=== PATIENT | male | born 1945 | race Caucasian/White ===

== ENCOUNTER 2018-03-18 09:59 | Outpatient (RCR) | payer MEDICARE, SELFPAY | END 2018-08-08 14:08 | LOC: SP 09:59 | PROVIDERS: Family Provider Family Medicine; PCP Family Medicine; Visit Provider Family Medicine | DX: R13.10 Dysphagia, unspecified (principal) | CPT/HCPCS: 92610 ==

== ENCOUNTER → 2018-05-08 12:25 | Outpatient (CLI) | payer MEDICARE, SELFPAY ==
--- NOTE | 2018-05-08 | DI.RAD.S_ITS ---
PROCEDURE: FL BARIUM SWALLOW W SPEECH INDICATIONS: DYSPHAGIA TECHNIQUE: Examination was conducted in conjunction with speech pathology per standard protocol. In the lateral projection, filming was performed of the patient swallowing. AP projection filming may also be performed with patient swallowing. COMPARISON: [facility], BARIUM SWALLOW, 02/07/2008, 11:15. [facility], BARIUM SWALLOW, 12/09/2007, 9:26. FINDINGS: Function: The oral preparatory phase appears normal, with proper containment. The subsequent oral propulsive phase, pharyngeal phase, and esophageal phase of swallowing also appear normal with all proffered substances. No laryngotracheal penetration or aspiration. No pathologic vallecular pooling. Morphology: No cricopharyngeal bar is identified. No cervical esophageal webs. No Zenker's diverticulum. No strictures. Quality of visualization of the distal esophagus is quite limited, and the margins of the esophagus in that area appears somewhat irregular. IMPRESSION: No aspiration found, no penetration identified. Irregular margins of the distal esophagus are noted on frontal projection and followup by endoscopy or upper GI examination may be the appropriate next step. The patient reported prior upper GI examinations and distant past esophageal endoscopy. No recent similar procedures have been performed. Please refer to the dedicated speech therapy report from this examination which will be independently generated. Dictated by: Aurelio Simeon M.D. on 05/08/2018 at 15:12 Approved by: Aurelio Simeon M.D. on 05/08/2018 at 15:27
== END ==
PROVIDERS: PCP Family Medicine; Visit Provider Family Medicine
DX: R13.10 Dysphagia, unspecified (principal)
CPT/HCPCS: 74230; 92611

== ENCOUNTER 2018-09-25 10:35 | Day surgery (SDC) | payer MEDICARE, SELFPAY ==
[2018-09-25 10:49] VITALS: BP 168/87; PULSE 59; RESP 15; TEMP 36.1; O2SAT 98; BMI 32.0
[2018-09-25] MEDS: SODIUM CHLORIDE 0.9% 1,000 ML 42 ML IV (11:05)
--- NOTE | 2018-09-25 12:00 | PM.HP.1 ---
History of Present Illness Date Patient Seen: 09/25/18 Time Patient Seen: 12:00 Chief complaint: [id number] Narrative: Worsening dysphagia with GE reflux Patient History Medical History (Updated 09/24/18 @ 17:06 by Keira Villa RN) Borderline diabetes (Acute) Diverticulosis (Acute) Fibromyalgia (Acute) GE reflux (Acute) HTN (hypertension) (Acute) Hyperlipidemia (Acute) Hypothyroid (Acute) Sjogren's disease (Acute) Surgical History (Updated 09/24/18 @ 17:07 by Keira Villa RN) S/P cholecystectomy (Acute) Social History household members: spouse Family & Social History Social History: household members spouse Meds Home Medications Medication Instructions Recorded Confirmed Type Aspir-81 09/24/18 History Onglyza 09/24/18 History hydrochlorothiazide 09/24/18 History levothyroxine 09/24/18 History lisinopril 09/24/18 History metoprolol succinate 09/24/18 History omeprazole 09/24/18 History Allergies Allergy/AdvReac Type Severity Reaction Status Date / Time INGREDIENT: NDA - NO KNOWN Allergy Unknown Uncoded 08/22/17 12:34 DRUG ALLERGIES Lidocaine AdvReac Unknown Uncoded 09/25/18 10:45 Morphine AdvReac Unknown Uncoded 08/22/17 12:34 Exam Vital Signs (past 8 hours): - 09/25/18 10:49 Temperature 96.9 F L Pulse Rate 59 L Respiratory Rate 15 Blood Pressure 168/87 H Pulse Oximetry 98 Oxygen Delivery Method Room Air Narrative Exam Narrative: Oropharynx free of lesions Chest clear to auscultation percussion Cardiac exam reveals no S3 or murmur Assessment & Plan Assessment & Plan narrative: Worsening dysphagia on the background of GE reflux Plan is to perform upper endoscopy and dilation if necessary. Risks, benefits, alternatives have been explained.
--- NOTE | 2018-09-25 12:04 | P.OP.ENDO_ITS ---
Operative Date/Time/Diagnoses Date of procedure: 09/25/18 Time of procedure: 12:03 Pre-op diagnosis: See indication and findings Procedure & Clinicians Study performed: EGD Same procedure as scheduled: Yes Indications: Worsening dysphagia Surgeon: Ebony Fagan Procedure Notes Procedure in detail: After informed consent was obtained the patient was placed in left lateral decubitus position. The video upper scope was placed into the oropharynx with the patient's help swelled the esophagus. The esophagus stomach and duodenum were carefully examined. On withdrawal retroflexed view the GE junction was performed. Scope was removed. The patient tolerated the procedure well. Blood loss none Complications none Medications Total sedation time 11 minutes Versed 5 mg fentanyl 100 micro g IV titration Findings 1. Tortuous somewhat spastic esophagus with lots of bubbly secretions present. Distal esophagus/GE junction was somewhat tight around the scope but did not clearly have a stenotic lesion. On withdrawal this was dilated to 54 [place] Savary. There was no resistance. 2. 3 cm hiatal hernia from 37-40 cm 3. Scanty erythema in the antrum 4. Normal duodenal bulb and sweep The patient could have underlying achalasia or at least EGJ obstruction. I wo uld just like to see how he does with this routine Savary dilation and if it improves if prolonged period of time then will considered adequate. If it does not then I would suggest esophageal manometry for further diagnosis. All
[2018-09-25] MEDS: MIDAZOLAM 5 MG/5 ML VIAL IV (12:58)
[2018-09-25] MEDS: fentaNYL 250 MCG/5 ML INJ IV (12:58)
[2018-09-25 13:08] VITALS: BP 109/62; PULSE 63; RESP 13; TEMP 36.4; O2SAT 97
[2018-09-25 13:15] VITALS: BP 121/63; PULSE 63; RESP 13; O2SAT 96
[2018-09-25 13:20] VITALS: BP 109/61; PULSE 60; RESP 16; TEMP 36.3; O2SAT 95
[2018-09-25 13:45] VITALS: BP 130/72; PULSE 61; RESP 16; TEMP 36.3; O2SAT 94
[2018-09-25 14:06] VITALS: BP 125/72; PULSE 60; RESP 15; TEMP 36.3; O2SAT 97
== END 2018-09-25 14:13 ==
LOC: ENDO 10:36
PROVIDERS: PCP Family Medicine; Visit Provider Internal Medicine Gastroenterology
PROC: 0DJ08ZZ Inspection of Upper Intestinal Tract, Via Natural or Artificial Opening Endoscopic (ICD-10-PCS; CPT 43235; principal; 2018-09-25 12:30)
DX: R13.10 Dysphagia, unspecified (principal); K44.9 Diaphragmatic hernia without obstruction or gangrene; K21.9 Gastro-esophageal reflux disease without esophagitis; I10 Essential (primary) hypertension; E78.5 Hyperlipidemia, unspecified; E03.9 Hypothyroidism, unspecified; M35.00 Sjogren syndrome, unspecified
CPT/HCPCS: 43248; J2250; J3010

== ENCOUNTER → 2019-07-21 11:55 | Outpatient (CLI) | payer MEDICARE, SELFPAY ==
--- NOTE | 2019-07-21 | DI.RAD.S_ITS ---
PROCEDURE: XR HIP W PEL IF DONE RT 2V INDICATIONS: RIGHT HIP PAIN TECHNIQUE: AP pelvis with lateral view(s) of the right hip(s). COMPARISON: None. FINDINGS: Bones: No fractures or dislocations. Sacroiliac joints grossly unremarkable. Lower lumbar spondylosis. Mild bilateral hip degeneration. Pelvic ring appears intact. No suspicious bony lesions. Soft tissues: The visualized bowel gas pattern is normal. No suspicious soft tissue calcifications. IMPRESSION: Mild bilateral hip joint degeneration. Lower lumbar spondylosis Dictated by: Steve Rutherford M.D. on 07/21/2019 at 16:18 Approved by: Steve Rutherford M.D. on 07/21/2019 at 16:35
--- NOTE | 2019-07-21 | DI.RAD.S_ITS ---
PROCEDURE: XR LUMBAR SPINE 2-3V INDICATIONS: RIGHT HIP PAIN TECHNIQUE: 3 views of the lumbar spine were acquired. COMPARISON: None. FINDINGS: Bones: No fracture or focal osseous destruction. Grade 1 anterolisthesis of L4 and L5. Multilevel degenerative endplate sclerosis and spurring. Diffuse facet arthropathy. Severe narrowing of the L5-S1 disc space. Diffuse mild lumbar disc space narrowing Soft tissues: Overlying bowel gas pattern is normal. No suspicious soft tissue calcifications. IMPRESSION: Diffuse lumbar spondylosis and facet arthropathy Grade 1 anterolisthesis of L4-L5 Dictated by: Steve Rutherford M.D. on 07/21/2019 at 16:15 Approved by: Steve Rutherford M.D. on 07/21/2019 at 16:17
== END ==
PROVIDERS: PCP Family Medicine; Referring Provider Family Medicine; Visit Provider Family Medicine
DX: M25.551 Pain in right hip (principal); M16.0 Bilateral primary osteoarthritis of hip; M43.16 Spondylolisthesis, lumbar region; M47.816 Spondylosis without myelopathy or radiculopathy, lumbar region; M48.07 Spinal stenosis, lumbosacral region; M54.9 Dorsalgia, unspecified; R29.898 Other symptoms and signs involving the musculoskeletal system
CPT/HCPCS: 72100; 73502

== ENCOUNTER → 2020-04-12 10:16 | Outpatient (CLI) | payer MEDICARE, SELFPAY ==
[2020-04-12 12:22] LABS: COVID19 -Nasal RAPID Negative (Negative)
== END ==
PROVIDERS: PCP Family Medicine; Visit Provider Physician Assistant
DX: Z11.59 Encounter for screening for other viral diseases (principal)
CPT/HCPCS: 87635

== ENCOUNTER 2020-04-14 07:31 | Day surgery (SDC) | payer MEDICARE, SELFPAY ==
--- NOTE | 2020-04-14 | PATH_ITS ---
[facility] Accession Number: [id number] . 01 Material submitted: . body - NO SITE DESIGNATED . 01 Clinical history: . SDC RULE OUT EOE . 02 Diagnosis: Esophagus, Biopsy: Squamous epithelium with no diagnostic abnormality. Intraepithelial eosinophils are not increased. Negative for dysplasia and malignancy. V 04/16/2020 1145 Local . 02 Electronically signed: . Milo Tinoco MD, PhD, Pathologist NPI- [id number] . 01 Gross description: . NO SITE DESIGNATED: Received in formalin are 3 fragment(s) of rm, soft tissue measuring 0.3 x 0.3 x 0.1 cm to 0.3 x 0.1 x 0.1 cm submitted entirely in 1 cassette(s) /QBJ 04/15/2020 0634 Local . 02 Pathologist provided ICD-10: R13.10 . 02 CPT . 684424 Performed at: 01 [facility] [address] [facility], [place], [place] [id number] MD Rai Noel MD Phone: [phone] Performed at: 02 [facility] [address] [place], [place] [id number] MD Martha De MD Phone: [phone]
[2020-04-14 08:24] VITALS: BP 164/83; PULSE 59; RESP 16; TEMP 36.2; O2SAT 98; BMI 32.5
--- NOTE | 2020-04-14 08:32 | PM.HP.1 ---
History of Present Illness History of Present Illness Date Patient Seen: 04/14/20 Time Patient Seen: 08:32 Chief complaint: SDC Narrative: Dysphagia Patient History Medical History (Updated 09/24/18 @ 17:06 by Keira Villa RN) Borderline diabetes Diverticulosis Fibromyalgia GE reflux HTN (hypertension) Hyperlipidemia Hypothyroid Sjogren's disease Surgical History (Updated 09/24/18 @ 17:07 by Keira Villa RN) S/P cholecystectomy Family & Social History Social History: household members spouse Meds Home Medications and Allergies Home Medications Medication Instructions Recorded Confirmed Type Aspir-81 81 mg PO DAILY 09/24/18 04/14/20 History Onglyza 5 mg PO BEDTIME 09/24/18 04/14/20 History levothyroxine 75 mcg PO DAILY 09/24/18 04/14/20 History metoprolol succinate 75 mg PO DAILY 09/24/18 04/14/20 History omeprazole 20 mg PO BID 09/24/18 04/14/20 History hydroxychloroquine 200 mg PO BID 04/14/20 04/14/20 History Allergies Allergy/AdvReac Type Severity Reaction Status Date / Time lidocaine AdvReac Unknown Nearly Verified 04/14/20 08:15 passed out morphine AdvReac Unknown Difficulty Verified 04/14/20 08:15 Breathing Exam Narrative Exam Narrative: Oropharynx free of lesions Chest clear to auscultation percussion Cardiac exam reveals no S3 or murmur Assessment & Plan Assessment & Plan narrative: Dysphagia in the upper substernal region. Rule out mechanical lesion such as web or stricture. Rule out eosinophilic esophagitis. Risks, benefits, alternatives have been explained.
--- NOTE | 2020-04-14 08:33 | PM.OP.ENDO ---
Operative Date/Time/Diagnoses Date of procedure: 04/14/20 Pre-op diagnosis: See indication and findings Procedure & Clinicians Study performed: EGD Same procedure as scheduled: Yes Indications: Dysphagia Surgeon: Ebony Fagan Procedure Notes Procedure in detail: After informed consent was obtained the patient was placed in left lateral decubitus position. The video upper scope was placed into the oropharynx and with the patient's help swallowed into the esophagus. The esophagus stomach and duodenum were carefully examined. On withdrawal, retroflexed view of the GE junction was performed. The scope was removed. The patient tolerated procedure well. Blood loss none Complications none Sedation Total sedation time 10 minutes Versed 3 mg fentanyl 100 micro g IV titration. Findings 1. Impingement on the most proximal esophagus by pulsating extra luminal lesion. This probably represents dysphagia lusoria 2. Somewhat disordered peristalsis in the distal esophagus. Biopsies taken to rule out eosinophilic esophagitis 3. Tight somewhat difficult to get through GE junction which subsequently opened up a bit. Rule out achalasia. GE junction at 36 cm 4. 6 cm hiatal hernia 5. Mild patchy erythema in the distal stomach not biopsy 6. Normal duodenal bulb and sweep I think 1st Mr. Reo needs to have an barium swallow performed this will be arranged for him at [facility]. Pending that result we will decide on whether or not he needs esophageal manometry.
[2020-04-14] MEDS: SODIUM CHLORIDE 0.9% 1,000 ML 100 ML IV (08:35)
[2020-04-14] MEDS: MIDAZOLAM 5 MG/5 ML VIAL IV (08:58)
[2020-04-14] MEDS: fentaNYL 250 MCG/5 ML INJ IV (08:58)
[2020-04-14 09:03] VITALS: BP 136/81; PULSE 63; RESP 16; O2SAT 95
[2020-04-14 09:07] VITALS: BP 142/76; PULSE 68; RESP 12; TEMP 36.6; O2SAT 95
[2020-04-14 09:13] VITALS: BP 133/79; PULSE 70; RESP 15; TEMP 36.6; O2SAT 96
[2020-04-14 09:20] VITALS: BP 140/80; PULSE 65; RESP 16; TEMP 36.6; O2SAT 99
[2020-04-14 10:30] VITALS: BP 136/79; PULSE 69; RESP 16; TEMP 36.6; O2SAT 99
--- NOTE | 2020-04-14 12:10 | SUR.PHASEII ---
Late entry: Dr. Fagan spoke with pt about results of procedure and what tests were possibly needed in the future.
--- NOTE | 2020-04-14 12:14 | SUR.PHASEII ---
Late entry: stable phase 2, assisted to dress when ready to go, no nausea belly soft.
== END 2020-04-14 10:40 | disposition home or self-care (01) ==
PROVIDERS: PCP Family Medicine; Referring Provider Internal Medicine Gastroenterology; Visit Provider Internal Medicine Gastroenterology
PROC: 0DJ08ZZ Inspection of Upper Intestinal Tract, Via Natural or Artificial Opening Endoscopic (ICD-10-PCS; CPT 43235; principal; 2020-04-14 08:30)
DX: R13.10 Dysphagia, unspecified (principal); K44.9 Diaphragmatic hernia without obstruction or gangrene; M79.7 Fibromyalgia; K21.9 Gastro-esophageal reflux disease without esophagitis; I10 Essential (primary) hypertension; E78.5 Hyperlipidemia, unspecified; E03.9 Hypothyroidism, unspecified; M35.00 Sjogren syndrome, unspecified
CPT/HCPCS: 43239; J2250; J3010

== ENCOUNTER → 2020-04-16 11:03 | Outpatient (CLI) | payer MEDICARE, SELFPAY ==
--- NOTE | 2020-04-16 11:09 | DI.MRI.S_ITS ---
PROCEDURE: MR HEAD/BRAIN WO/W CON INDICATIONS: Headache, unspecified TECHNIQUE: Noncontrast axial T1 spin echo, axial T2 fast spin echo, sagittal and axial FLAIR, coronal T2 fast spin echo, axial gradient echo, axial diffusion and ADC through the brain. After the administration of contrast, axial and coronal T1 spin echo with fat saturation through the brain. COMPARISON: None. FINDINGS: Image quality: Excellent. CSF spaces: Basal cisterns are patent. No extra-axial fluid collections. Ventricles are normal in size and shape. Brain: No midline shift. No intracranial bleeds or masses. No abnormal intracranial enhancement. There is cerebral volume loss for age. There is periventricular white matter chronic small vessel ischemic change. The brainstem appears normal. Diffusion-weighted images demonstrate no acute ischemic insults. No chronic ischemic insults. Normal intravascular flow voids are present. Skull and face: Calvarial marrow is normal in signal. Orbits appear normal. Sinuses: Sinuses and mastoids appear clear. IMPRESSION: No evidence of acute ischemia. No acute intracranial signal abnormality or enhancement. Diffuse small white matter changes, probably represent chronic microvascular ischemic disease, versus statistically less likely demyelination or other infectious, inflammatory, neurodegenerative etiology, technically nonspecific. Dictated by: Steve Rutherford M.D. on 04/16/2020 at 12:34 Approved by: Steve Rutherford M.D. on 04/16/2020 at 12:39
--- NOTE | 2020-04-16 11:10 | DI.MRI.S_ITS ---
PROCEDURE: MR ANGIO HEAD WO CON INDICATIONS: Headache, unspecified TECHNIQUE: Noncontrast axial 3-D [id number] MR angiogram, with 3-dimensional maximum intensity projection (MIP) reformats of the internal carotid arteries and posterior circulation then performed. COMPARISON: None. FINDINGS: Image quality: Excellent. Anterior circulation: Intracranial internal carotid arteries demonstrate normal size and intraluminal flow signal. The flow within the paired anterior cerebral arteries is normal and symmetric. The flow within the middle cerebral arteries is normal and symmetric. The anterior communicating artery is seen. No stenoses, occlusions, or aneurysms. Posterior circulation: Visualized portions of the vertebral arteries demonstrate normal caliber, and join to form a normal appearing basilar artery. The flow within the posterior cerebral arteries is normal and symmetric. No stenoses, occlusions, or aneurysms. IMPRESSION: Negative cerebral MR angiography. Dictated by: Annalisa Norman M.D. on 04/16/2020 at 12:41 Approved by: Annalisa Norman M.D. on 04/16/2020 at 12:42
--- NOTE | 2020-04-16 11:11 | DI.RAD.S_ITS ---
PROCEDURE: XR WRIST LT MIN 3V INDICATIONS: PAIN IN WRIST LEFT TECHNIQUE: 4 views of the wrist were acquired. COMPARISON: None. FINDINGS: Bones: No fractures or dislocations. No suspicious bony lesions. Severe 1st CMC and triscaphe joint degeneration. Soft tissues: No suspicious soft tissue calcifications. IMPRESSION: Left wrist joint degeneration as above. If the patient's pain or other symptoms persist, consider further evaluation with MRI Dictated by: Steve Rutherford M.D. on 04/16/2020 at 13:45 Approved by: Steve Rutehrford M.D. on 04/16/2020 at 13:46
== END ==
PROVIDERS: PCP Family Medicine; Referring Provider Family Medicine; Visit Provider Family Medicine
DX: R51.9 Headache, unspecified (principal); M25.532 Pain in left wrist; M18.12 Unilateral primary osteoarthritis of first carpometacarpal joint, left hand; M19.032 Primary osteoarthritis, left wrist
CPT/HCPCS: 70544; 70553; 73110; A9579

== ENCOUNTER → 2020-04-26 11:01 | Outpatient (CLI) | payer MEDICARE, SELFPAY ==
--- NOTE | 2020-04-26 | DI.RAD.S_ITS ---
PROCEDURE: FL BARIUM SWALLOW INDICATIONS: Dysphagia, unspecified COMPARISON: [facility], , [place] BARIUM SWALLOW W SPEECH, 05/08/2018, 13:19. FINDINGS: Function: There is markedly decreased esophageal peristalsis. No elicited gastroesophageal reflux. There is delayed transit of a calibrated barium tablet through the esophagus into the stomach. Morphology: There is marked dilated appearance of the esophagus diffusely. Beak like narrowing appearance of the distal esophagus. There is a small hiatal hernia. IMPRESSION: Severe esophageal dysmotility and dilated appearance of the esophagus . Beak-like narrowed appearance of the distal esophagus suggestive of achalasia. Of note, there was no passage of a barium tablet through this region during the examination. Recommend clinical correlation and if necessary, further evaluation could be performed with upper endoscopy to exclude malignant etiologies. Small hiatal hernia Dictated by: Steve Rutherford M.D. on 04/26/2020 at 16:16 Approved by: Steve Rutherford M.D. on 04/26/2020 at 16:26
== END ==
PROVIDERS: PCP Family Medicine; Referring Provider Internal Medicine Gastroenterology; Visit Provider Internal Medicine Gastroenterology
DX: R13.10 Dysphagia, unspecified (principal); K22.4 Dyskinesia of esophagus; K44.9 Diaphragmatic hernia without obstruction or gangrene
CPT/HCPCS: 74220

== ENCOUNTER → 2022-04-20 09:49 | Outpatient (CLI) | payer MEDICARE, SELFPAY ==
--- NOTE | 2022-04-20 | DI.RAD.S_ITS ---
PROCEDURE: XR KNEE RT 3V INDICATIONS: Pain in unspecified knee TECHNIQUE: 3 views of the knee were acquired. COMPARISON: [facility], CR, XR KNEE LT 3V, 04/20/2022, 10:07. FINDINGS: Bones: No fractures or dislocations. No suspicious bony lesions. There is mild tricompartmental osteoarthritic degenerative change. Soft tissues: No joint effusion. No suspicious soft tissue calcifications. IMPRESSION: Mild tricompartmental osteoarthritic degenerative change. Dictated by: Gavin Edge M.D. on 04/20/2022 at 10:41 Approved by: Gavin Edge M.D. on 04/20/2022 at 10:43
--- NOTE | 2022-04-20 | DI.RAD.S_ITS ---
PROCEDURE: XR KNEE LT 3V INDICATIONS: Pain in unspecified knee TECHNIQUE: 3 views of the knee were acquired. COMPARISON: None. FINDINGS: Bones: No fractures or dislocations. No suspicious bony lesions. There is mild tricompartmental osteoarthritic type degenerative change present. Soft tissues: No joint effusion. No suspicious soft tissue calcifications. Atherosclerotic vascular calcifications are noted. IMPRESSION: 1. No evidence for acute osseous abnormality involving the patient's left knee. 2. Mild tricompartmental osteoarthritic degenerative change. 3. Atherosclerotic vascular calcifications. Dictated by: Gavin Edge M.D. on 04/20/2022 at 10:43 Approved by: Gavin Edge M.D. on 04/20/2022 at 10:45
--- NOTE | 2022-04-20 | DI.RAD.S_ITS ---
PROCEDURE: XR LUMBAR SPINE 2-3V INDICATIONS: back pain TECHNIQUE: 3 views of the lumbar spine were acquired. COMPARISON: [facility], CR, XR LUMBAR SPINE 2-3V, 07/21/2019, 11:58. FINDINGS: Bones: 5 oxj-cor-qykzpoc vertebrae are present. There is normal bony alignment. No vertebral body compression fractures. No suspicious bony lesions. There is npmj-lq-billegmw degenerative disc disease noted at all levels throughout the patient's lumbar spine. Soft tissues: Overlying bowel gas pattern is normal. No suspicious soft tissue calcifications. IMPRESSION: 1. No evidence for acute osseous abnormality involving the lumbar spine. 2. Mild to moderate diffuse degenerative disc disease noted at all levels. 3. Atherosclerotic vascular calcifications. Dictated by: Gavin Edge M.D. on 04/20/2022 at 10:45 Approved by: Gavin Edge M.D. on 04/20/2022 at 10:47
== END ==
PROVIDERS: PCP Family Medicine; Referring Provider Family Medicine; Visit Provider Family Medicine
DX: M47.816 Spondylosis without myelopathy or radiculopathy, lumbar region (principal); M25.569 Pain in unspecified knee
CPT/HCPCS: 72100; 73562

== ENCOUNTER → 2022-05-24 12:38 | Outpatient (CLI) | payer MEDICARE, SELFPAY ==
--- NOTE | 2022-05-24 12:41 | DI.RAD.S_ITS ---
PROCEDURE: XR CHEST 2V INDICATIONS: CHEST/CERVICAL SPINE TECHNIQUE: 2 views of the chest were acquired. COMPARISON: [facility], , CHEST 2 VIEW, 11/20/2013, 16:49. FINDINGS: Surgical changes and devices: None. Lungs and pleura: Lungs are clear. No pleural effusions or pneumothorax. Mediastinum: Mediastinal contours are normal. Heart size is normal. Moderate hiatal Bones and chest wall: No suspicious bony abnormalities. Soft tissues appear unremarkable. IMPRESSION: No acute cardiopulmonary findings Moderate hiatal hernia Approved by: Yo Sandhu M.D. on 05/24/2022 at 18:13
--- NOTE | 2022-05-24 12:42 | DI.RAD.S_ITS ---
PROCEDURE: XR CERVICAL SPINE 2V OR 3V INDICATIONS: CHEST/CERVICAL SPINE TECHNIQUE: 3 view(s) of the cervical spine were acquired. COMPARISON: None. FINDINGS: Bones: No fractures or dislocations to the T1 level. The lateral masses of C1 appear intact on the odontoid view. No suspicious bony lesions. C6-7 disc space narrowing and small anterior osteophyte Soft tissues: No prevertebral soft tissue swelling. IMPRESSION: Mild degenerative disc disease, C6-7 Approved by: Yo Sandhu M.D. on 05/24/2022 at 18:15
== END ==
PROVIDERS: PCP Family Medicine; Referring Provider Family Medicine; Visit Provider Family Medicine
DX: M50.323 Other cervical disc degeneration at C6-C7 level (principal); I25.10 Atherosclerotic heart disease of native coronary artery without angina pectoris; K44.9 Diaphragmatic hernia without obstruction or gangrene
CPT/HCPCS: 71046; 72040

== ENCOUNTER → 2022-07-18 14:42 | Outpatient (CLI) | payer MEDICARE, SELFPAY ==
--- NOTE | 2022-07-18 | DI.US.S_ITS ---
PROCEDURE: US CAROTID DOPPLER BI INDICATIONS: CERVICALGIA TECHNIQUE: Color and pulse Doppler interrogation was performed of both carotid systems, with image documentation and velocity measurements. COMPARISON: None. FINDINGS: Stenosis calculations are based on SRU (Society of Radiologists in Ultrasound) criteria. Right side: Brachial blood pressure: 145/68 mm Hg. Common carotid artery peak systolic velocity: 100 cm/sec. Internal carotid artery peak systolic velocity: 59 cm/sec. Internal carotid artery end diastolic velocity: 14 cm/sec. External carotid artery peak systolic velocity: 93 cm/sec. ICA/CCA peak systolic ratio: 0.6 . Gates scale imaging description: Mild plaque at the bifurcation Percent internal carotid artery stenosis: Less than 50 . Vertebral artery: Flow direction is antegrade. Left side: Brachial blood pressure: 129/65 mm Hg. Common carotid artery peak systolic velocity: 124 cm/sec. Internal carotid artery peak systolic velocity: 95 cm/sec. Internal carotid artery end diastolic velocity: 24 cm/sec. External carotid artery peak systolic velocity: 110 cm/sec. ICA/CCA peak systolic ratio: 0.8 . Gates scale imaging description: Mild plaque at the bifurcation Percent internal carotid artery stenosis: Less than 50% . Vertebral artery: Flow direction is antegrade. IMPRESSION: Less than 50% stenosis of the internal carotid arteries bilaterally. Dictated by: Anjana Geiger M.D. on 07/19/2022 at 12:48 Approved by: Anjana Geiger M.D. on 07/19/2022 at 12:49
== END ==
PROVIDERS: PCP Family Medicine; Referring Provider Family Medicine; Visit Provider Family Medicine
DX: M54.2 Cervicalgia (principal); I65.23 Occlusion and stenosis of bilateral carotid arteries
CPT/HCPCS: 93880

== ENCOUNTER → 2022-11-09 14:31 | Outpatient (CLI) | payer MEDICARE, SELFPAY ==
[2022-11-09 14:57] LABS: Hematocrit 43.8 % (41-53); Hemoglobin 15.6 g/dL (13.5-17.5); Mean Corpuscular HGB Conc 35.7 % (30-36); Mean Corpuscular Hemoglobin 32.5 PG (26-34); Mean Corpuscular Volume 90.9 fL (80-100); Platelet Count 186 X10^3/uL (150-400); Red Blood Cell Count 4.82 X10^6/uL (4.5-5.9); Red Cell Distribution Width 13.8 % (11.6-14.8); White Blood Cell Count 7.2 X10^3/uL (4.5-11.0)
[2022-11-09 15:15] LABS: Alanine Aminotransferase 20 IU/L (<50); Albumin 4.3 g/dL (3.5-5.0); Albumin Globulin Ratio 1.5 (1.0-2.8); Alkaline Phosphatase 89 U/L (38-126); Aspartate Aminotransferase 37 IU/L (17-59); BUN Creatinine Ratio 14.4 (6-22); Bilirubin Total 0.8 mg/dL (0.2-1.3); Blood Urea Nitrogen 14 mg/dL (9-20); Carbon Dioxide 29 mmol/L (22-32); Chloride 101 mmol/L (98-107); Cholesterol 168 mg/dL (140-199); Estimated Glomerular Filt Rate > 60 mL/min (>60); Globulin 2.9 g/dL (1.7-4.1); Glucose 132 mg/dL (80-110); HDL Cholesterol 37 mg/dL (40-60); HEMOLYSIS 20 (0-50); LDL Cholesterol Calculated 91 mg/dL (<100); Potassium 4.3 mmol/L (3.4-5.1); Sodium 137 mmol/L (137-145); Total Protein 7.2 g/dL (6.3-8.2); Triglycerides 199 mg/dL (35-150)
[2022-11-09 15:43] LABS: TSH w/ Reflex to FT4 4.96 uIU/mL (0.47-4.68)
[2022-11-09 15:44] LABS: Prostate Specific Antigen 0.492 ng/mL (0.10-4.00)
[2022-11-09 16:08] LABS: Free T4, Direct Thyroxine 1.05 ng/dL (0.78-2.19)
[2022-11-10 05:54] LABS: Labcorp Hemoglobin (Hb) A1c 6.2 % (4.8-5.6)
== END ==
PROVIDERS: PCP Internal Medicine; Referring Provider Internal Medicine; Visit Provider Internal Medicine
DX: N40.0 Benign prostatic hyperplasia without lower urinary tract symptoms; I10 Essential (primary) hypertension; E11.69 Type 2 diabetes mellitus with other specified complication; E78.2 Mixed hyperlipidemia; E78.5 Hyperlipidemia, unspecified
CPT/HCPCS: 36415; 80053; 80061; 83036; 84153; 84439; 84443; 85027

== ENCOUNTER → 2022-11-15 10:18 | Outpatient (CLI) | payer MEDICARE, SELFPAY ==
--- NOTE | 2022-11-15 10:19 | DI.RAD.S_ITS ---
PROCEDURE: [place] BARIUM SWALLOW W SPEECH INDICATIONS: dysphagia COMPARISON: TECHNIQUE: Examination was conducted in conjunction with speech pathology per standard protocol. In the lateral projection, filming was performed of the patient swallowing. AP projection filming may also be performed with patient swallowing. COMPARISON: [facility], , [place] BARIUM SWALLOW, 04/26/2020, 12:35. FINDINGS: Function: The oral preparatory phase appears normal, with proper containment. The subsequent oral propulsive phase, pharyngeal phase, and esophageal phase of swallowing also appear unremarkable with all proffered substances. No significant laryngotracheal penetration or aspiration. No pathologic vallecular pooling. Morphology: The esophagus appears dilated and tortuous as before. Redemonstrated hiatal hernia. IMPRESSION: 1. No tracheal aspiration visualized. Please see the speech pathologist report for additional details. 2. Redemonstrated hiatal hernia and dilated/tortuous appearance of the esophagus. Dictated by: Shane Metcalf M.D. on 11/15/2022 at 11:34 Approved by: Shane Metcalf M.D. on 11/15/2022 at 11:39
--- NOTE | 2022-11-15 13:35 | ST.SWALLOW ---
Visit Care Team Role Provider Type Mukul Downing MD Attending Provider Physician Primary Care Provider Referring Provider Specialty: Internal Medicine Address: [address] [place] [address], [id number] Email: [email or web address] Modified Barium Swallow Study NUT GRADER Modified Barium Swallow Study Start: 11/15/22 12:41 Freq: Status: Active Protocol: Document 11/15/22 12:41 LNK (Rec: 11/15/22 13:35 LNK [id number]) Modified Barium Swallow Study Total Time Visit Start Time 10:30 Visit Stop Time 11:10 Total Visit Minutes [address] Downing Reason for Referral dysphagie Setting Setting Outpatient Care Patient Information Identification Type Name,Date of Patient History Pt was seen for a Modified Barium Swallow Study secondary at the referral of Dr Downing. Pt has had a long history of swallowing difficulties. According to his records, pt was seen for EGD dilation 9 times with minimal relief. Pt has a PMH of GERD, dysphagia, Sjogren's syndrome and recently was diagnosed with Parkinson's disease. Pt described his dysphagia as frequent coughing/choking, undigested emisis, food sticking in his throat (points to sternum). he also reported that frequently, he will bend over after a meal, and what he as just eaten of drank would come into his mouth. pt reports the s/sx occur a minimum of 2x/day. Pt reports he has lost ~50 pounds. Pt was seen for a MBSS in April 2018, with the results indicating no penetration or aspiration. A recommendation for GI consult was made at that time. Pt also had a barium swallow xray in April 2020 that indicated severe esophageal dysmotility and a beak like appearance of the distal esophagus impeding flow through to the stomach. Subjective Observations Pt was seated in the fluoroscopy chair with procedures and instructions described for him. Pt indicated he understood and agreed to proceed. Patient Positioning Position View Lat-A/P Imaging Lateral View Textures Administered Trials Presented Thin Liquid via Spoon (IDDSI 0 ),Thin Liquid via Cup (IDDSI 0 ),Extremely Thick Liquid via Spoon (IDDSI 4),Regular (IDDSI 7) Barium Tablet Yes The IDDSI Framework Protocol: IDDSI.1 Oral Impairment Source: The Modified Barium Swallow Impairment Profile (MBSImP??) Lip Closure No labial escape Tongue Control During Bolus Hold Cohesive bolus between tongue to palatal seal Bolus Preparation/Mastication Timely & efficient chewing & mashing Bolus Transport/Lingual Motion Brisk tongue motion Oral Residue Trace residue lining oral structures Location Tongue Initiation of Pharyngeal Swallow Bolus head in valleculae Additional Oral Impairment Observations OME and DKS were observed to be WNL for form and function. Pt's dentition included an upper denture and a lower partial, both reported to fit well. ORAL PHASE: Pt's bolus hold, control and AP transition were observed to be WNL. Mastication was WFL wit pinto rotary chew and good bulus formation. Pharyngeal Impairment Source: The Modified Barium Swallow Impairment Profile (MBSImP??) Soft Palate Elevation No bolus between soft palate & pharyngeal wall Laryngeal Elevation Part.sup.move.thyroid cart/ part.approx.arytenoids to epiglot.petiole Anterior Hyoid Excursion Partial anterior movement Epiglottic Movement Complete inversion Laryngeal Vestibular Closure Complete; no air/contrast in laryngeal vestibule Pharyngeal Stripping Wave Present - diminished Pharyngoesophageal Segment Opening Complete distention & complete duration; no obstruction of flow Tongue Base Retraction Wide column of contrast/air between tongue base & post. pharyngeal wall Pharyngeal Residue Collection of residue within/ on pharyngeal structures Location Diffuse (>3 areas) Additional Pharyngeal Impairment Mild tongue base weakness was Observations observed that impacted hyolaryngeal elevation and movement. Epiglottic inversion was complete with no evidence of penetration or aspiration. Mild to minimal pharyngeal residue was observed within pharynx. A/P View Textures Administered Trials Presented Thin Liquid via Spoon (IDDSI 0 ) The IDDSI Framework Protocol: IDDSI.1 A/P View Observations Esophageal Function Slowed Clearing,Poor Motility, Reverse Peristalsis,Stasis, Narrowing Additional A-P Observations When turned to AP position, the pt's esophagus was noted to be > half way full of the previous trial amounts. The esophagus was observed to coil and reverse the flow of esophageal contents. There was significant constriction of the distal portion of the esophagus preventing the contents to flow into the stomach The barium tablet was unable to clear the distal portion of the esophagus. The MBSS was terminated at that point. Clinical Impressions Dysphagia Type Esophageal Findings Pt did not present with oropharyngeal dysphagia. Rather, the pt presented with significant esophageal dysphagia that is consistent with his PMH. So ST is indicated. Recommendation was made to the pt to eat several small meals per day approximately 1-2 hours apart to allow for the esophagus to clear. Additionally, it was recommended that he wait approximately an hour after eating to perform chores or projects that require bending forward. Any emisis that could follow the pt's meals are likely to penetrate the larynx or even be aspirated if the esophagus is full. Recommend GI consult. Patient Appropriate for Therapy No Recommendations Diet Liquids Order Thin (IDDSI 0) Diet Order Regular (IDDSI 7) Medication Recommendation As Tolerated,Whole in Carrier, Crushed in Carrier Aspiration Precautions Recommended Precautions Frequent Rest Periods,Small Bites/Sips Additional Precautions Several small meals per day are recommended to allow for gravity to assist Treatment Plan Recommended Referrals GI Consult Therapy Strategy Recommendations Small Bites and Sips,Alternate Liquids/Solids Additional Strategies Recommended Several small meals spaced out throughout the day
== END ==
PROVIDERS: PCP Internal Medicine; Referring Provider Internal Medicine; Visit Provider Internal Medicine
DX: R13.10 Dysphagia, unspecified (principal); K44.9 Diaphragmatic hernia without obstruction or gangrene
CPT/HCPCS: 74230; 92611

== ENCOUNTER 2022-12-05 09:47 | Outpatient (RCR) | payer MEDICARE, SELFPAY ==
--- NOTE | 2022-12-05 15:59 | ST.OPIE ---
Visit Care Team Role Provider Type Mukul Downing MD Attending Provider Physician Family Provider Primary Care Provider Referring Provider Specialty: Internal Medicine Address: [address] [place] [address], [id number] Email: [email or web address] Speech-Language Pathology Initial Evaluation CUT FILER Clinical Swallow Evaluation Start: 12/05/22 10:29 Freq: Status: Active Protocol: Document 12/05/22 11:14 CG (Rec: 12/05/22 11:29 CG [id number]) Clinical Swallow Evaluation Session Time Visit Start Time 10:33 Visit Stop Time 11:12 Total Visit Minutes 39 Visit Information Visit Number 1 Insurance Information Medicare Referral Referring Provider Dr. Downing Reason for Referral dysphagia Patient Information History Pt was seen for an CUT FILER evaluation for dysphagia following a modified barium swallow study completed on 11/15. Pt has had a long history of swallowing difficulties. According to his records and pt report, pt was seen for EGD dilation 9 times with minimal relief. Pt has a PMH of GERD , dysphagia, Sjogren's syndrome and recently was diagnosed with Parkinson's disease. Pt described his dysphagia as frequent undigested emesis and occasional feeling of things going down the wrong tube. Upon further questions, he states that at feels as though things are going dwon the wrong tube on their way back up rather than on their way down. At his most recent MBSS , he also reported that, frequently, he will bend over after a meal, and what he as just eaten or drank would come into his mouth. Pt reports the s/sx occur a minimum of 2x /day. Pt reported again today that he has lost ~50 pounds. Pt was also previously seen for a MBSS in April 2018, with the results indicating no penetration or aspiration. A recommendation for GI consult was made at that time. Pt also had a barium swallow xray in April 2020 that indicated severe esophageal dysmotility and a beak like appearance of the distal esophagus impeding flow through to the stomach. The most recent MBSS also indicated esophageal retention . During the study, the esophagus was observed to coil and move the bolus back towards the pharynx in a retrograde flow. Based on the results of the MBSS, evaluating CUT FILER Desiree Liang recommended no speech therapy was warranted and pt should pursue further GI consult due to gastroenterologic etiology of his symptoms. Subjective Observations Patient arrived on time for his appointment. He independently ambulated to clinic room and reported no pain. He was alert, oriented, and cooperative throughout the visit. Reported by Patient/Caregiver Pain/Discomfort No Other Symptoms Difficulty swallowing solids, Food gets stuck,Weight loss Comment Pt stated that he has lost about 50 pounds due to difficulties with food coming back up. He states that food gets stuck and won't go down, which is consistent with report presented during MBSS on 11/15/22. Current Diet Regular (IDDSI 7) Baseline Feeding Method Independent in self-feeding The IDDSI Framework Protocol: IDDSI.1 Objective Assessment Mental Status Alert,Responsive,Cooperative Oral Integrity WFL Dentition Upper dentures/partials,Lower dentures/partials Lip Function Within normal limits Tongue Function Within normal limits Jaw Function Within normal limits Hard/Soft Palate Function Within normal limits Comment Based on OME performed 11/15/22, all oral motor structures and functions appeared adequate for speech and swallowing. Based on informal observation, oral motor structure and function continue to appear WFL. Pt has an upper denture and a partial lower denture. Oral bolus hold and mastication were also observed to be WFL during MBSS. Food and Liquid Trials Oral Impairment Within functional limits Pharyngeal Impairment Within functional limits Pharyngeal Phase Comments Per MBSS, no penetration/ aspiration observed. Pt does not report symptoms of pharyngeal dysphagia other than feeling that things 'go in the wrong tube when they come back up. The IDDSI Framework Protocol: IDDSI.1 Findings Swallowing Function Other dysphagia Swallowing Function Comments Pt presents with esophageal dysphagia/esophageal retention Prognosis Fair Based on Other (comment) Comment Ongoing symptoms despite previous GI interventions Impact on Safety and Functioning Risk for aspiration,Risk for inadequate nutrition/hydration Recommendations Instrumental Assessment No Swallowing Treatment No Other Recommendations Based on review of pt symptoms in addition to results from results from previous MBSS, medical history, and existing conditions, the pt continues to present with esophageal dysphagia and does not present with oral-pharyngeal dysphagia at this time. Therefore, he is not appropriate for rehabilitative swallowing therapy with an CUT FILER. The underlying cause of the pt's swallowing difficulties is not due to a physiological deficit within the pharyngeal/laryngeal system, but rather due to severe esophageal dysmotility and retention in addition to other gastroenterological concerns. The CUT FILER provided pt counseling on basic lifestyle modifications and recommendations to reduce s/sx of esophageal dysphagia, including avoiding excessive caffeine/alcohol/spicy foods/ fatty foods, eating more frequent small meals to allow esophagus to clear between meals, taking small bites, and remaining upright at least 30 minutes after meals. Pt was receptive to these modifications. Based on medical records, pt's most recent GI appt appears to have taken place in late 2019. CUT FILER highly recommends a new GI referral/follow up with GI to manage symptoms. Safety Precautions/Swallowing Remain upright (90 degrees) Recommendations during all oral intake,Upright position at least 30 minutes after meals,Slow rate; swallow between bites Medication Recommendations As Tolerated,Whole in Carrier, Crushed in Carrier Discharge Recommendations Home Referrals Recommended Referrals Gastroenterology Education Patient/Caregiver Education Described results of evaluation,Patient expressed understanding of evaluation
== END 2023-10-02 11:09 | disposition home or self-care (01) ==
LOC: SP 09:47
PROVIDERS: Family Provider Internal Medicine; PCP Internal Medicine; Referring Provider Internal Medicine; Visit Provider Internal Medicine
DX: R13.10 Dysphagia, unspecified (principal)
CPT/HCPCS: 92610

== ENCOUNTER → 2023-05-16 09:00 | Outpatient (CLI) | payer MEDICARE, SELFPAY ==
[2023-05-16 10:57] LABS: Hemoglobin A1C% w Est Avg Glu 6.7 % (4.0-6.0)
[2023-05-16 11:18] LABS: BUN Creatinine Ratio 12.2 (6-22); Blood Urea Nitrogen 11 mg/dL (9-20); Calcium 9.6 mg/dL (8.4-10.2); Carbon Dioxide 29 mmol/L (22-32); Chloride 100 mmol/L (98-107); Estimated Glomerular Filt Rate > 60 mL/min (>60); Glucose 146 mg/dL (80-110); HEMOLYSIS < 15 (0-50); Potassium 4.5 mmol/L (3.4-5.1); Sodium 137 mmol/L (137-145)
[2023-05-16 11:44] LABS: TSH w/ Reflex to FT4 4.31 uIU/mL (0.47-4.68)
[2023-05-16 12:02] LABS: Creatinine Urine Random 180.9 mg/dL
[2023-05-16 12:05] LABS: Microalbumi Creatinin Ratio Ur 4.9 ug/mg CR (<30); Microalbumin Urine Random 0.9 mg/dL (0-1.6)
== END ==
PROVIDERS: Family Provider Internal Medicine; PCP Internal Medicine; Referring Provider Internal Medicine; Visit Provider Internal Medicine
DX: E11.69 Type 2 diabetes mellitus with other specified complication (principal); E03.9 Hypothyroidism, unspecified; E78.5 Hyperlipidemia, unspecified; I10 Essential (primary) hypertension; E78.2 Mixed hyperlipidemia; N40.0 Benign prostatic hyperplasia without lower urinary tract symptoms
CPT/HCPCS: 36415; 80048; 82043; 82570; 83036; 84443

== ENCOUNTER → 2023-11-13 08:26 | Outpatient (CLI) | payer MEDICARE, SELFPAY ==
[2023-11-13 09:19] LABS: Hemoglobin A1C% w Est Avg Glu 6.5 % (4.0-6.0)
[2023-11-13 09:47] LABS: Aspartate Aminotransferase 29 IU/L (17-59); Blood Urea Nitrogen 13 mg/dL (9-20); Calcium 8.7 mg/dL (8.4-10.2); Carbon Dioxide 29 mmol/L (22-32); Chloride 104 mmol/L (98-107); Cholesterol 114 mg/dL (140-199); Estimated Glomerular Filt Rate > 60 mL/min (>60); Glucose 157 mg/dL (80-110); HDL Cholesterol 46 mg/dL (40-60); HEMOLYSIS < 15 (0-50); LDL Cholesterol Calculated 40 mg/dL (<100); Potassium 4.3 mmol/L (3.4-5.1); Sodium 138 mmol/L (137-145); Triglycerides 142 mg/dL (35-150)
[2023-11-13 10:16] LABS: Prostate Specific Antigen 0.503 ng/mL (0.10-4.00)
== END ==
PROVIDERS: Family Provider Internal Medicine; PCP Internal Medicine; Referring Provider Internal Medicine; Visit Provider Internal Medicine
DX: E11.69 Type 2 diabetes mellitus with other specified complication (principal); E78.5 Hyperlipidemia, unspecified; E78.2 Mixed hyperlipidemia; E03.9 Hypothyroidism, unspecified
CPT/HCPCS: 36415; 80048; 80061; 83036; 84153; 84450

== ENCOUNTER → 2024-02-18 11:31 | Outpatient (CLI) | payer MEDICARE, SELFPAY ==
--- NOTE | 2024-02-18 11:35 | DI.RAD.S_ITS ---
PROCEDURE: XR CHEST 2V INDICATIONS: CARDIA TECHNIQUE: 2 views of the chest were acquired. COMPARISON: [facility], CR, XR CHEST 2V, 05/24/2022, 12:45. FINDINGS: Heart, mediastinum and pulmonary vascular: Heart is normal in size and configuration. Mediastinum is unremarkable. Minimal pneumomediastinum noted. Pulmonary vascular is normal. Lungs: Clear Pleural spaces: Small bilateral pleural effusion appreciated. There is a 5 percent left apical pneumothorax . Probable 10 percent right pneumothorax noted. Pleural edge is vaguely seen. In addition, there is modest subcutaneous emphysema throughout the chest and lower neck. Free air in the diaphragms noted. History of recent abdominal surgery acknowledged. Bones and soft tissues: Normal IMPRESSION: 5 percent left and probable 10 percent right pneumothorax with small effusions. Small pneumomediastinum Subcutaneous emphysema in the chest wall. Pneumoperitoneum-recent abdominal surgery is acknowledged. Results called 02/19/2024 1030 hours Dictated by: Julian Kearney M.D. on 02/19/2024 at 10:23 Approved by: Julian Kearney M.D. on 02/19/2024 at 10:31
== END ==
PROVIDERS: Family Provider Internal Medicine; PCP Internal Medicine
DX: K22.0 Achalasia of cardia (principal); J93.9 Pneumothorax, unspecified; J90 Pleural effusion, not elsewhere classified; J98.2 Interstitial emphysema
CPT/HCPCS: 71046

== ENCOUNTER → 2024-02-25 09:16 | Outpatient (CLI) | payer MEDICARE, SELFPAY ==
--- NOTE | 2024-02-25 09:19 | DI.RAD.S_ITS ---
PROCEDURE: XR CHEST 2V INDICATIONS: ACHALASIA TECHNIQUE: 2 views of the chest were acquired. COMPARISON: [facility], , XR CHEST 2V, 02/18/2024, 11:33. FINDINGS: Heart, mediastinum and pulmonary vasculature: Heart is normal in size and configuration. Small hiatal hernia noted. Mediastinum otherwise normal. Pulmonary vascular is normal. Lungs: Clear Pleural spaces: 15% right apical pneumothorax appreciated with small right pleural effusion. Bones and soft tissues: Normal IMPRESSION: 15% right pneumothorax with small right pleural effusion. This shows slight improvement from x-ray 1 week prior . The left pneumothorax has resolved Dictated by: Julian Kearney M.D. on 02/26/2024 at 10:58 Approved by: Julian Kearney M.D. on 02/26/2024 at 11:01
== END ==
PROVIDERS: Family Provider Internal Medicine; PCP Internal Medicine; Referring Provider Registered Nurse; Visit Provider Registered Nurse
DX: K22.0 Achalasia of cardia (principal); J93.9 Pneumothorax, unspecified; J90 Pleural effusion, not elsewhere classified; K44.9 Diaphragmatic hernia without obstruction or gangrene
CPT/HCPCS: 71046

== ENCOUNTER → 2024-03-06 09:04 | Outpatient (CLI) | payer MEDICARE, SELFPAY ==
[2024-03-06 10:21] LABS: Creatinine Urine Random 155.66 mg/dL
[2024-03-06 10:25] LABS: Microalbumin Urine Random 2.4 mg/dL (0-1.6)
[2024-03-06 10:28] LABS: BUN Creatinine Ratio 14.6 (6-22); Blood Urea Nitrogen 13 mg/dL (9-20); Calcium 9.1 mg/dL (8.4-10.2); Carbon Dioxide 29 mmol/L (22-32); Chloride 100 mmol/L (98-107); Estimated Glomerular Filt Rate > 60 mL/min (>60); Glucose 132 mg/dL (80-110); HEMOLYSIS < 15 (0-50); Potassium 4.5 mmol/L (3.4-5.1); Sodium 135 mmol/L (137-145)
[2024-03-06 11:29] LABS: Hemoglobin A1C% w Est Avg Glu 6.6 % (4.0-6.0)
== END ==
PROVIDERS: Family Provider Internal Medicine; PCP Internal Medicine; Referring Provider Internal Medicine; Visit Provider Internal Medicine
DX: E11.69 Type 2 diabetes mellitus with other specified complication (principal); E78.5 Hyperlipidemia, unspecified; I10 Essential (primary) hypertension
CPT/HCPCS: 36415; 80048; 82043; 82570; 83036

== ENCOUNTER → 2024-08-12 09:03 | Outpatient (CLI) | payer MEDICARE, SELFPAY ==
[2024-08-12 10:37] LABS: Hemoglobin A1C% w Est Avg Glu 6.5 % (4.0-6.0)
[2024-08-12 10:46] LABS: BUN Creatinine Ratio 13.8 (6-22); Blood Urea Nitrogen 15 mg/dL (9-20); Calcium 9.5 mg/dL (8.4-10.2); Carbon Dioxide 27 mmol/L (22-32); Chloride 100 mmol/L (98-107); Estimated Glomerular Filt Rate > 60 mL/min (>60); Glucose 151 mg/dL (80-110); HEMOLYSIS < 15 (0-50); Sodium 138 mmol/L (137-145)
[2024-08-12 11:15] LABS: TSH w/ Reflex to FT4 4.71 uIU/mL (0.47-4.68)
[2024-08-12 12:20] LABS: Free T4, Direct Thyroxine 1.11 ng/dL (0.78-2.19)
== END ==
PROVIDERS: Family Provider Internal Medicine; PCP Internal Medicine; Referring Provider Internal Medicine; Visit Provider Internal Medicine
DX: E11.69 Type 2 diabetes mellitus with other specified complication (principal); E78.5 Hyperlipidemia, unspecified; E03.9 Hypothyroidism, unspecified
CPT/HCPCS: 36415; 80048; 83036; 84439; 84443

== ENCOUNTER → 2024-12-09 08:48 | Outpatient (CLI) | payer MEDICARE, SELFPAY ==
[2024-12-09 10:03] LABS: Hemoglobin A1C% w Est Avg Glu 6.9 % (4.0-6.0)
[2024-12-09 10:15] LABS: Blood Urea Nitrogen 16 mg/dL (9-20); Calcium 9.2 mg/dL (8.4-10.2); Carbon Dioxide 27 mmol/L (22-32); Chloride 102 mmol/L (98-107); Cholesterol 117 mg/dL (140-199); Estimated Glomerular Filt Rate > 60 mL/min (>60); Glucose 144 mg/dL (70-99); HDL Cholesterol 44 mg/dL (40-60); HEMOLYSIS < 15 (0-50); Potassium 4.2 mmol/L (3.4-5.1); Sodium 137 mmol/L (137-145); Triglycerides 140 mg/dL (35-150)
[2024-12-09 10:39] LABS: Microalbumi Creatinin Ratio Ur 8.0 ug/mg CR (<30)
[2024-12-09 10:41] LABS: Prostate Specific Antigen 0.479 ng/mL (0.10-4.00)
[2024-12-09 10:44] LABS: TSH w/ Reflex to FT4 4.27 uIU/mL (0.47-4.68)
== END ==
PROVIDERS: Family Provider Internal Medicine; PCP Internal Medicine; Referring Provider Internal Medicine; Visit Provider Internal Medicine
DX: E11.69 Type 2 diabetes mellitus with other specified complication (principal); E03.9 Hypothyroidism, unspecified; E78.5 Hyperlipidemia, unspecified; E78.2 Mixed hyperlipidemia
CPT/HCPCS: 36415; 80048; 80061; 82043; 82570; 83036; 84153; 84443; 84450

== ENCOUNTER → 2025-03-19 10:49 | Outpatient (CLI) | payer MEDICARE, SELFPAY ==
[2025-03-19 12:48] LABS: Blood Urea Nitrogen 15 mg/dL (9-20); Calcium 9.2 mg/dL (8.4-10.2); Carbon Dioxide 26 mmol/L (22-32); Chloride 101 mmol/L (98-107); Estimated Glomerular Filt Rate > 60 mL/min (>60); Glucose 126 mg/dL (70-99); HEMOLYSIS < 15 (0-50); Potassium 4.4 mmol/L (3.4-5.1); Sodium 137 mmol/L (137-145)
[2025-03-19 12:52] LABS: Hemoglobin A1C% w Est Avg Glu 6.7 % (4.0-6.0)
== END ==
PROVIDERS: PCP Internal Medicine; Referring Provider Internal Medicine; Visit Provider Internal Medicine
DX: E11.69 Type 2 diabetes mellitus with other specified complication (principal); E78.5 Hyperlipidemia, unspecified; E78.2 Mixed hyperlipidemia; I47.10 Supraventricular tachycardia, unspecified
CPT/HCPCS: 36415; 80048; 83036; 84450